=== PATIENT | female | born 1995 ===

== ENCOUNTER 2018-05-16 08:33 | Outpatient (CLI) | payer BC ==
[~2018-05-16] VITALS: Ht 170.2 cm; Wt 56.7 kg
[2018-05-16] MEDS ORDERED: DERMOTIC20 ML OTIC (13:28)
== END 2018-05-16 08:45 | disposition home or self-care (01) ==
LOC: OFIC 805 08:33
DX: H92.03 Otalgia, bilateral (principal); H93.13 Tinnitus, bilateral; J31.0 Chronic rhinitis